=== PATIENT | female | born 1995 | race Two or more races ===

== ENCOUNTER 2024-02-21 18:30 | Emergency (ER) | payer MEDICAID, OTHER ==
[~2024-02-21] VITALS: Ht 167.6 cm; Wt 108.9 kg
[2024-02-21 19:38] LABS: BASOPHILS # (AUTO) 0.1 K/UL (0.0-0.2); BASOPHILS % (AUTO) 0.6 % (0.0-2.0); EOSINOPHILS # (AUTO) 0.1 K/uL (0.0-0.7); EOSINOPHILS % (AUTO) 0.6 % (0.0-7.0); HEMATOCRIT 37.6 % (31.2-41.9); HEMOGLOBIN 12.7 g/dL (10.9-14.3); LYMPHOCYTES # (AUTO) 0.7 K/uL (0.8-4.8); LYMPHOCYTES % (AUTO) 7.8 % (20.5-51.5); MEAN CORPUSCULAR HGB CONC 34 g/dL (32.3-35.6); MEAN CORPUSCULAR VOLUME 80.1 fL (75.5-95.3); MONOCYTES # (AUTO) 0.8 K/uL (0.1-1.30); MONOCYTES % (AUTO) 8.4 % (0.0-11.0); NEUTROPHILS # (AUTO) 7.5 K/uL (1.8-8.9); NEUTROPHILS % (AUTO) 82.6 % (38.5-71.5); PLATELET COUNT (AUTO) 254 K/uL (179-408); RED CELL DISTRIBUTION WIDTH 14.9 % (12.3-17.7)
[2024-02-21 19:45] LABS: DIFFERENTIAL COMMENT 1
[2024-02-21 19:59] LABS: CALCIUM 8.6 mg/dL (8.5-10.1); CARBON DIOXIDE 27 mmol/L (21-32); CHLORIDE 100 mmol/L (98-107); CREATININE 0.6 mg/dL (0.6-1.3); GLUCOSE 84 mg/dL (74-106); SODIUM SERUM 136 mmol/L (136-145); UREA NITROGEN, BLOOD 6 mg/dL (7-18)
[2024-02-21] MEDS: ONDANSETRON 4 MG/2 ML VIAL IV ONE (20:00)
[2024-02-21 20:05] LABS: ALANINE AMINOTRANSFERASE 35 U/L (14-59); ALBUMIN 3.6 g/dL (3.4-5.0); ALKALINE PHOSPHATASE 109 U/L (50-136); ASPARTATE AMINOTRANSFERASE 12 U/L (15-37); BILIRUBIN,DIRECT 0.1 mg/dL (0.0-0.2); BILIRUBIN,TOTAL 0.2 mg/dL (0.2-1.0); TOTAL PROTEIN, SERUM 8.3 g/dL (6.4-8.2)
[2024-02-21] MEDS ORDERED: MORPHINE SULFATE 4 MG/1 ML DISP.SYRIN ONE (20:05)
[2024-02-21] MEDS ORDERED: ONDANSETRON 4 MG/2 ML VIAL ONE (20:05)
[2024-02-21 20:06] LABS: PREGNANCY TEST SERUM QUAN < 1 miul/L (0-6)
[2024-02-21] MEDS ORDERED: IV NORMAL SALINE 250 ML IV ONE (20:16)
[2024-02-21] MEDS ORDERED: IOHEXOL 300MG/ML 100 ML INFUS..BTL ONE (20:16)
[2024-02-21] MEDS ORDERED: SWABABLE VALVE TRANSFER SET EA MC ONE (20:16)
[2024-02-21 20:17] LABS: LIPASE 28 U/L (16-77)
[2024-02-21] MEDS: MORPHINE SULFATE 4 MG/1 ML DISP.SYRIN IV ONE (20:20)
[2024-02-21 21:27] LABS: *BILIRUBIN,URIN NEGATIVE (NEGATIVE); *CLARITY,URINE CLEAR (CLEAR); *COLOR,URINE YELLOW (YELLOW); *KETONES,URINE NEGATIVE (NEGATIVE); *PROTEIN,URINE NEGATIVE (NEGATIVE); *UROBILINOGEN,URINE 0.2 E.U./dl (NORMAL); LEUKOCYTE ESTERASE ,URINE NEGATIVE (NEGATIVE); NITRITE, URINE NEGATIVE (NEGATIVE); UGLUCOSE NEGATIVE (NEGATIVE)
[2024-02-21 21:28] LABS: *BLOOD, URINE TRACE (NEGATIVE)
[2024-02-21 21:35] LABS: BACTERIA,URINE FEW /HPF (NONE SEEN); RBC,URINE 0-3 /HPF (0-3); SQUAMOUS EPITHELIAL CELL,UR FEW /HPF (NONE SEEN); WBC,URINE NONE SEEN /HPF (0-3)
[2024-02-21 22:01] VITALS: BP 118/74; TEMP 98.6; O2SAT 98
== END 2024-02-21 22:05 | disposition home or self-care (01) ==
LOC: ER 18:30
DX: J02.8 Acute pharyngitis due to other specified organisms (principal); B97.89 Other viral agents as the cause of diseases classified elsewhere; N83.209 Unspecified ovarian cyst, unspecified side; R10.2 Pelvic and perineal pain; R10.31 Right lower quadrant pain; Z20.822 Contact with and (suspected) exposure to COVID-19
CPT/HCPCS: 36415; 76856; 83690; 85025; A4606; A4663; J2270; J2405; Q9967